=== PATIENT | female | born 1970 | race Two or more races ===

== ENCOUNTER 2023-12-04 18:58 | Emergency (ER) | payer OTHER ==
[~2023-12-04] VITALS: Ht 154.9 cm; Wt 79.4 kg
[2023-12-04] MEDS ORDERED: LEFLUNOMIDE10 MG PO (19:12)
[2023-12-04] MEDS ORDERED: JARDIANCE25 MG PO (19:12)
[2023-12-04] MEDS ORDERED: CRESTOR5 MG (19:13)
[2023-12-04] MEDS ORDERED: COZAAR25 MG PO (19:13)
[2023-12-04] MEDS ORDERED: SERTRALINE20 MG/1 ML (19:13)
[2023-12-04] MEDS ORDERED: GLUMETZA500 MG PO (19:13)
== END 2023-12-04 21:56 | disposition home or self-care (01) ==
LOC: ER 18:59
DX: R00.2 Palpitations (principal); I10 Essential (primary) hypertension; E11.9 Type 2 diabetes mellitus without complications

== ENCOUNTER 2024-08-08 10:07 | Emergency (ER) | payer OTHER ==
[~2024-08-08] VITALS: Ht 152.4 cm; Wt 72.6 kg
[~2024-08-08 10:07] MED LIST: COZAAR25 MG PO; CRESTOR5 MG; GLUMETZA500 MG PO; JARDIANCE25 MG PO; LEFLUNOMIDE10 MG PO; SERTRALINE20 MG/1 ML
[2024-08-08 12:12] LABS: HEMATOCRIT 40.9 % (36.0-45.00); MEAN CELL VOLUME 87.5 fL (80.00-100.00); MEAN CORPUSCULAR HEMOGLOBIN 29.9 pg (27.00-32.0); MEAN CORPUSCULAR HGB CONC 34.1 g/dl (32.0-36.0); PLATELET COUNT 298 K/uL (150-450); RED BLOOD COUNT 4.67 M/uL (4.00-6.00); RED CELL DISTRIBUTION WIDTH 14.1 % (11.5-14.5)
[2024-08-08 12:35] LABS: CALCIUM 9.1 mg/dL (8.5-10.1); CREATININE SERUM 0.56 mg/dL (0.55-1.02); GFR 111.98; POTASSIUM 3.58 mEq/L (3.5-5.1)
[2024-08-08 12:39] LABS: URINE APPEARANCE Clear; URINE BILIRRUBIN Negative (NEGATIVE); URINE BLOOD Large; URINE COLOR Yellow; URINE KETONE Negative (NEGATIVE); URINE LEUKOCYTE Negative; URINE NITRATE Negative; URINE PROTEIN Negative (NEGATIVE); URINE UROBILINOGEN 0.2 E.U./dl
[2024-08-08 12:43] LABS: URINE BACTERIA 41.5 uL (0.0-1933); URINE EPITHELIAL CELLS 7.7 uL (0.0-38.8); URINE RBC 359.8 uL (0.0-20.8); URINE WBC 5.2 uL (0.0-23.2)
[2024-08-08 12:46] LABS: URINE GLUCOSE >=1000 MG/DL (NEGATIVE)
== END 2024-08-08 14:10 | disposition home or self-care (01) ==
LOC: ER 10:08
PROVIDERS: General Practice
DX: R10.2 Pelvic and perineal pain (principal)